=== PATIENT | female | born 1965 | race African-American/Black ===

== ENCOUNTER 2018-02-05 20:43 | Emergency (ER) | payer OTHER ==
--- NOTE | 2018-02-05 22:10 | RAD ---
RIGHT WRIST: 02/05/18 Three views. HISTORY: Wrist pain. Carpals appear normally aligned. No fracture identified. IMPRESSION: No acute abnormality. POS: [facility]
== END 2018-02-05 23:27 | disposition home or self-care (01) ==
LOC: ERS 20:43
DX: M25.531 Pain in right wrist (principal); J45.909 Unspecified asthma, uncomplicated; F31.9 Bipolar disorder, unspecified; F20.9 Schizophrenia, unspecified; F17.210 Nicotine dependence, cigarettes, uncomplicated

== ENCOUNTER 2018-06-01 10:22 | Emergency (ER) | payer OTHER ==
[2018-06-01 10:45] LABS: Bilirubin Negative (Negative); Blood, Urine Negative (Negative); Clarity CLEAR (Clear); Glucose, Urine (Dipstick) Negative (Negative); Leukocyte Negative (Negative); Nitrite Negative (Negative); Protein, Urine (Dipstick) Negative (Neg-Trace); Specific Gravity, Urine 1.019 (1.002-1.036)
[2018-06-01 10:54] LABS: Amphetamine Not Detected (NotDetected); Barbiturates Screen Not Detected (NotDetected); Benzodiazepine Screen Not Detected (NotDetected); Cocaine Metabolite Screen Detected (NotDetected); Medtox Control Line Valid? VALID (VALID); Medtox Reader # READER 1; Methadone Not Detected (NotDetected); Methamphetamine Not Detected (NotDetected); Opiate Screen Not Detected (NotDetected); Oxycodone Screen Not Detected (NotDetected); Phencyclidine (PCP) Not Detected (NotDetected); THC/Cannabinoid Screen Not Detected (NotDetected); Tricyclic Screen Not Detected (NotDetected)
[2018-06-01 11:15] LABS: ALT (SGPT) 81 U/L (8-55); AST (SGOT) 73 U/L (5-34); Acetaminophen Less than 6.0 mcg/mL (10.0-30.0); Albumin 4.2 g/dL (3.5-5.0); Alcohol 22 mg/dL (Less than 10); Alkaline Phosphatase 77 U/L (40-150); Anion Gap 15 mmol/L (10-20); BUN (Urea Nitrogen) 11 mg/dL (9.8-20.1); Bilirubin, Total 0.4 mg/dL (0.2-1.2); Calc. Creatinine Clearance 0 mL/min (70-130); Calcium 9.5 mg/dL (7.8-10.44); Carbon Dioxide 22 mmol/L (22-29); Chloride 104 mmol/L (98-107); Estimated GFR-MDRD 77; Globulin 3.6 g/dL (2.4-3.5); Glucose 80 mg/dL (70-105); Hemoglobin 14.4 g/dL (12.0-16.0); Mean Corpuscular Hemoglobin 35.2 pg (27.0-31.0); Mean Platelet Volume 9.6 fL (7.4-10.4); Platelet Count 155 thou/uL (130-400); Potassium 3.9 mmol/L (3.5-5.1); Protein, Total 7.8 g/dL (6.0-8.3); RBC Distribution Width 11.2 % (11.5-14.5); Red Blood Cell (RBC) Count 4.09 mill/uL (4.20-5.40); Salicylate Less than 8.0 mg/dL (15.0-30.0); Sodium 137 mmol/L (136-145); White Blood Cell (WBC) Count 6.1 thou/uL (4.8-10.8)
[2018-06-01 11:19] LABS: Band 1 % (5-11); Eosinophils 1 % (0-10); Lymphocytes 52 % (21-51); MDiff Complete? YES; Macrocytosis SLIGHT = 6-15 cells (100X) (0-5/hpf); Monocytes 3 % (0-10); Neutrophil 43 % (42-75); PLT Morphology Comment Appears Adequate
== END 2018-06-01 12:54 | disposition home or self-care (01) ==
LOC: ERS 10:22
DX: F43.20 Adjustment disorder, unspecified (principal); F14.10 Cocaine abuse, uncomplicated; J45.909 Unspecified asthma, uncomplicated; F31.9 Bipolar disorder, unspecified; F17.210 Nicotine dependence, cigarettes, uncomplicated
CPT/HCPCS: 36415; 80053; 80306; 80307; 81003; 84443; 85025; 93005

== ENCOUNTER 2019-05-02 14:54 | Emergency (ER) | payer OTHER ==
[2019-05-02] MEDS ORDERED: Ibuprofen 200 MG TAB ONE (15:34)
--- NOTE | 2019-05-02 15:39 | RAD ---
XR Knee Lt 4 View STANDARD History: Injury Comparison: None. Findings: No acute fracture or malalignment. Mild vascular calcifications. No significant joint effus ion. Impression: No acute abnormality.
== END 2019-05-02 16:30 | disposition home or self-care (01) ==
LOC: ERS 14:54
DX: M25.562 Pain in left knee (principal); J45.909 Unspecified asthma, uncomplicated; F17.210 Nicotine dependence, cigarettes, uncomplicated; F31.9 Bipolar disorder, unspecified; F20.9 Schizophrenia, unspecified; Z79.899 Other long term (current) drug therapy; W19.XXXA Unspecified fall, initial encounter

== ENCOUNTER 2019-07-15 19:14 | Emergency (ER) | payer OTHER | END 2019-07-15 20:53 | LOC: ERS 19:14 | DX: M25.511 Pain in right shoulder (principal); M79.644 Pain in right finger(s); M25.531 Pain in right wrist; K08.9 Disorder of teeth and supporting structures, unspecified; J45.909 Unspecified asthma, uncomplicated; F31.9 Bipolar disorder, unspecified; F20.9 Schizophrenia, unspecified; F17.210 Nicotine dependence, cigarettes, uncomplicated; F17.290 Nicotine dependence, other tobacco product, uncomplicated; V89.2XXA Person injured in unspecified motor-vehicle accident, traffic, initial encounter | CPT/HCPCS: 99283 ==

== ENCOUNTER 2022-02-28 08:58 | Emergency (ER) | payer OTHER, SELFPAY ==
[2022-02-28] MEDS ORDERED: Acetaminophen 500 MG TAB ONE (10:08)
[2022-02-28] MEDS ORDERED: Ibuprofen 200 MG TAB ONE (10:08)
== END 2022-02-28 10:37 | disposition home or self-care (01) ==
LOC: ERS 08:58
DX: M25.562 Pain in left knee (principal); F17.210 Nicotine dependence, cigarettes, uncomplicated; F17.290 Nicotine dependence, other tobacco product, uncomplicated; M25.432 Effusion, left wrist; M25.431 Effusion, right wrist; W18.30XA Fall on same level, unspecified, initial encounter

== ENCOUNTER 2022-04-16 06:31 | Emergency (ER) | payer SELFPAY ==
[2022-04-16] MEDS ORDERED: Ibuprofen 200 MG TAB ONE (06:42)
[2022-04-16 07:35] LABS: SARS-CoV-2 NAA Rapid Test Not Detected (NotDetected)
== END 2022-04-16 08:00 | disposition home or self-care (01) ==
LOC: ERS 06:31
DX: J06.9 Acute upper respiratory infection, unspecified (principal); J45.909 Unspecified asthma, uncomplicated; F17.210 Nicotine dependence, cigarettes, uncomplicated; Z20.822 Contact with and (suspected) exposure to COVID-19
CPT/HCPCS: 99283

== ENCOUNTER 2025-07-08 09:51 | Emergency (ER) | payer OTHER, SELFPAY ==
[2025-07-08] MEDS ORDERED: Ketorolac Tromethamine 30 MG (1 mL) VIAL ONE (10:37)
== END 2025-07-08 12:03 ==
LOC: ERS 09:51
DX: M25.562 Pain in left knee (principal); F17.210 Nicotine dependence, cigarettes, uncomplicated; F17.290 Nicotine dependence, other tobacco product, uncomplicated
CPT/HCPCS: 96372; 99283; J1885